=== PATIENT | male | born 1970 | race Two or more races ===

== ENCOUNTER 2017-07-31 21:42 | Emergency (ER) | payer OTHER ==
[~2017-07-31] VITALS: Ht 170.2 cm; Wt 75.7 kg
[2017-07-31 21:45] VITALS: BP 164/87
--- NOTE | 2017-07-31 21:52 | PHYS DOC ---
Adult General Chief Complaint Chief Complaint: FINGER INJURY [facility] HPI Patient is a 46 year old male presents the ED complaining of finger injury 3 hours. Patient was playing volleyball in the volleyball jammed his right fifth finger. Describes the pain as sharp. Rates the pain as 7 out of 10. Pain with movement. Denies fever, rash, headache, head/neck injury, LOC, chest pain or shortness of breath. Review of Systems Review of Systems Constitutional: Denies fever or chills [] Eyes: Denies change in visual acuity, redness, or eye pain [] HENT: Denies nasal congestion or sore throat [] Respiratory: Denies cough or shortness of breath [] Cardiovascular: No additional information not addressed in HPI [] GI: Denies abdominal pain, nausea, vomiting, bloody stools or diarrhea [] : Denies dysuria or hematuria [] Musculoskeletal: Complains of finger pain. Denies back pain. [] Integument: Denies rash or skin lesions [] Neurologic: Denies headache, focal weakness or sensory changes [] Endocrine: Denies polyuria or polydipsia [] All other systems were reviewed and found to be within normal limits, except as documented in this note. Allergies Allergies Allergies Coded Allergies Type Severity Reaction Last Updated Verified No Known Drug Allergies 07/31/17 No Physical Exam Physical Exam Constitutional: Well developed, well nourished, no acute distress, non-toxic appearance. [] Eyes: PERRLA, EOMI, conjunctiva normal, no discharge. [] Neck: Normal range of motion, no tenderness, supple, no stridor. [] Skin: Warm, dry, no erythema, no rash. [] Back: No tenderness, no CVA tenderness. [] Extremities: MILD RIGHT 5TH FINGER TENDERNESS/SWELLING., no cyanosis, no clubbing, ROM intact, no edema. [] Neurologic: Alert and oriented X 3, normal motor function, normal sensory function, no focal deficits noted. [] Psychologic: Affect normal, judgement normal, mood normal. [] Current Patient Data Vital Signs Vital Signs Date Time Temp Pulse Resp B/P (MAP) Pulse Ox O2 Delivery O2 Flow Rate FiO2 07/31/17 21:45 98.7 51 16 97 Room Air 98.7 EKG EKG [] Radiology/Procedures Radiology/Procedures PROCEDURE: FINGER(S) RIGHT FINGER(S) RIGHT History:5th finger injury Comparison: None Findings:3 views of the right hand with attention to the fifth digit are submitted. Middle fifth phalanx is subluxed posteriorly by one shaft width relative to the proximal phalanx with overriding of the bones. There is a tiny bone fragment seen at the ulnar margin of the level of the proximal aspect of the fifth middle phalanx. Impression: 1.There is posterior subluxation of the fifth middle phalanx relative to the proximal phalanx by one shaft width. There is suggestion of a tiny avulsed bone fragment near the ulnar proximal aspect of the fifth middle phalanx. PROCEDURE: FINGER(S) RIGHT FINGER(S) RIGHT History:Post reduction Comparison: Exam earlier the same day Findings:3 views of the right hand with attention to the fifth digit are submitted. There is now adequate alignment of the fifth proximal interphalangeal joint. There is soft tissue swelling. On the lateral view, there is suggestion of very tiny osseous fragment distal to the distal aspect of the fifth proximal phalanx. Impression: 1.There is now adequate alignment of the fifth proximal interphalangeal joint. There is suggestion of a tiny avulsed bone fragment located posteriorly at the level of the distal aspect of the fifth proximal phalanx. []Finger dislocated. Finger manually reduced without complications. Patient tolerated procedure well. Finger splint placed. NV intact post placement. Discussed follow-up with orthopedics early next week. Provided contact information/education. Discussed reasons to return to the ED. Patient understands and agrees with plan. Course & Med Decision Making Course & Med Decision Making Pertinent Labs and Imaging studies reviewed. (See chart for details) [] Dragon Disclaimer Dragon Disclaimer This electronic medical record was generated, in whole or in part, using a voice recognition dictation system. Departure Departure Impression: Primary Impression: Finger dislocation Disposition: 01 HOME, SELF-CARE Condition: IMPROVED Referrals: CHARISSA TOLENTINO MD Patient Instructions: Finger Dislocation Scripts Ibuprofen (IBUPROFEN) 800 Mg Tablet 800 MG PO PRN Q6HRS Y for INFLAMMATION, #20 TAB Prov: MAYANK BARKER 07/31/17 MAYANK BARKER Jul 31, 2017 21:52
[2017-07-31] MEDS ORDERED: IBUP-1060 PO (22:46)
--- NOTE | 2017-08-01 07:36 | RAD ---
FINGER(S) RIGHT History:Post reduction Comparison: Exam earlier the same day Findings:3 views of the right hand with attention to the fifth digit are submitted. There is now adequate alignment of the fifth proximal interphalangeal joint. There is soft tissue swelling. On the lateral view, there is suggestion of very tiny osseous fragment distal to the distal aspect of the fifth proximal phalanx. Impression: 1.There is now adequate alignment of the fifth proximal interphalangeal joint. There is suggestion of a tiny avulsed bone fragment located posteriorly at the level of the distal aspect of the fifth proximal phalanx.
--- NOTE | 2017-08-01 07:39 | RAD ---
FINGER(S) RIGHT History:5th finger injury Comparison: None Findings:3 views of the right hand with attention to the fifth digit are submitted. Middle fifth phalanx is subluxed posteriorly by one shaft width relative to the proximal phalanx with overriding of the bones. There is a tiny bone fragment seen at the ulnar margin of the level of the proximal aspect of the fifth middle phalanx. Impression: 1.There is posterior subluxation of the fifth middle phalanx relative to the proximal phalanx by one shaft width. There is suggestion of a tiny avulsed bone fragment near the ulnar proximal aspect of the fifth middle phalanx.
== END 2017-07-31 23:02 | disposition home or self-care (01) ==
LOC: EEVIPCON 21:42 → ER 21:42
DX: S63.286A Dislocation of proximal interphalangeal joint of right little finger, initial encounter (principal); W23.0XXA Caught, crushed, jammed, or pinched between moving objects, initial encounter; Y93.68 Activity, volleyball (beach) (court); Y92.89 Other specified places as the place of occurrence of the external cause; Y99.8 Other external cause status
CPT/HCPCS: 26770; 73140; 99284-25